=== PATIENT | male | born 1960 | race Hispanic/Latino ===

== ENCOUNTER → 2022-09-01 | Day surgery (SDC) | payer OTHER ==
[~2022-09-01] MED LIST: GLUCOSAMINE1000 MG PO; LIDOCAINE HCL 2% LOCAL INJ 5 ML SDV VIAL INJ ONE; LOSARTAN POTASS25 MG PO; MIDAZOLAM HCL 2 MG/2 ML VIAL ONE; NISOLDIPINE8.5 MG PO; PROPOFOL IV EMULSION 10 MG/ML 20 ML VIAL ONE; VALACYCLOVIR500 MG PO
[2022-09-01 15:35] VITALS: BP 140/90
== END | disposition home or self-care (01) ==
LOC: OR 11:48
PROVIDERS: ATTEND Internal Medicine Gastroenterology
DX: Z12.11 Encounter for screening for malignant neoplasm of colon (principal); D12.2 Benign neoplasm of ascending colon; K64.8 Other hemorrhoids; K57.30 Diverticulosis of large intestine without perforation or abscess without bleeding; K21.9 Gastro-esophageal reflux disease without esophagitis; Z71.3 Dietary counseling and surveillance; I10 Essential (primary) hypertension; Z71.89 Other specified counseling; B00.9 Herpesviral infection, unspecified; Z01.810 Encounter for preprocedural cardiovascular examination; Z79.899 Other long term (current) drug therapy; Z68.26 Body mass index [BMI] 26.0-26.9, adult
CPT/HCPCS: 45380; 45385; 93005; J2001; J2250; J2704; 45378